=== PATIENT | male | born 1970 | race Caucasian/White ===

== ENCOUNTER 2017-02-27 04:58 | Emergency (ER) | payer BC ==
--- NOTE | 2017-02-27 05:15 | ERNOTE ---
Head Injury HPI - General Injury to: other - Posterior neck Time Seen by Provider: 02/27/17 05:13 Source: patient, RN notes reviewed Exam Limitations: no limitations - Immun/Allergies/Home Medications Immunization: IMMUNIZATION HX Immunizations Up to Date Yes History of Influenza Vaccine No Hx Pneumococcal Vaccination No Allergies/Adverse Reactions: Allergies Allergy/AdvReac Type Severity Reaction Status Date / Time No Known Allergies Allergy Unverified 02/27/17 05:00 Home Medications: HOME MEDICATIONS Cyclobenzaprine HCl [Flexeril] 10 mg PO HS PRN #15 tablet 02/27/17 [Last Taken Unknown] Furosemide [Lasix] 20 mg PO DAILY 02/27/17 [Last Taken Unknown] Lisinopril [Zestril] 5 mg PO DAILY 02/27/17 [Last Taken Unknown] Naproxen [Naprosyn] 500 mg PO BID #20 tablet 02/27/17 [Last Taken Unknown] - History of Present Illness Narrative: Patient was lifting something heavy on Monday, felt a muscle strain in his left posterior neck. It didn't seem to be too bad initially, but this morning he woke up and the pain was immensely worse. He hasn't slept much tonight and is concerned about going to work tomorrow. Occurred: other - Monday Location Occurred: home Severity: severe Method of Injury: Reports: other - lifting a heavy object Loss of Consciousness: Reports: no loss of consciousness Associated Symptoms: Reports: neck pain Review of Systems - Review of Systems Constitutional: Absent: recent illness, fever, chills EYE: Absent: eye pain, eye discharge ENT: Absent: ear pain, ear discharge, nose congestion Respiratory: Present: cough. Absent: shortness of breath Cardiology: Absent: chest pain, palpitations, syncope Gastrointestinal/Abdominal: Absent: nausea, vomiting, diarrhea Genitourinary: Absent: frequency, pain, dysuria Musculoskeletal: Absent: back pain, muscle pain, muscle stiffness, neck pain, joint pain, joint swelling Skin: Absent: rash, dryness Neurological: Absent: anxiety, depressed, headache Endocrine: Present: no symptoms reported Hematologic/Lymphatic: Present: no symptoms reported Psych: Present: no symptoms reported - Patient's Past Medical History Patient History - Medical: No pertinent hx Patient History - Cardiac/Respiratory: Hypertension, Hyperlipidemia Patient History - Cancer: No Hx of Cancer Patient History - Surgical Procedures: T & A, Other - Social History Abuse History: No History of abuse Psych History: No pertinent hx Smoking Status: Current every day smoker Patient requests Smoking Cessation Consult: No Initiate information on Smoking Cessation: No Alcohol Use: none Drug Use: none - Immunizations Immunizations Up to Date: Yes Hx Pneumococcal Vaccination: No History of Influenza Vaccine: No Physical Exam - Physical Exam General Appearance: Present: wd/wn, alert, moderate distress, anxious, obese Head Exam: Present: normal inspection, no evidence of injury Eye Exam: Normal inspection: bilateral, PERRL: bilateral, EOMI: bilateral Ears, Nose, Throat: Present: normal ENT inspection, normal pharynx Neck: Present: limited range of motion, tender lateral - Left. Absent: tender posterior midline Respiratory: Present: no respiratory distress, normal breath sounds, no accessory muscle use Cardiovascular/Chest: Present: regular rate, rhythm, no murmur, normal peripheral pulses Gastrointestinal/Abdominal: Present: normal bowel sounds, nontender, nondistended, soft, no organomegaly Back Exam: Present: normal inspection, normal range of motion Extremity Exam: Present: normal inspection, non-tender, normal range of motion, no edema Neurological Exam: Present: alert, oriented, normal mood/affect, no motor/ sensory deficits Skin Exam: Present: normal color, warm/dry ED Progress - Vital Signs Patient's Vital Signs:: I have reviewed the patient's vital signs. Vital Signs: Vital Signs 02/27/17 05:02 Temperature 36.4 C L Pulse Rate 109 H Respiratory 18 Rate Blood Pressure 169/107 O2 Sat by Pulse 99 Oximetry - Progress/Reassessment Chief Complaint: Neck Pain/Injury Progress:: Unchanged Progress Note-Subjective: 02/27/17 05:34 Toradol 60 mg IM Flexeril 10 mg to go Plan - Plan Plan: Discharge home with scripts for Naproxen and Flexeril, a work excuse. Departure Clinical Impression: Neck muscle strain Qualifiers: Encounter type: initial encounter Qualified Code(s): S16.1XXA - Strain of muscle, fascia and tendon at neck level, initial encounter - Departure Disposition: Home self-care Condition: Good Instructions: Cervical Strain and Sprain With Rehab-SportsMed Referrals: Tyron Rankin DO [Staff Physician] - (3-5 days, sooner if no improvement) Prescriptions: Cyclobenzaprine HCl [Flexeril] 10 mg PO HS PRN #15 tablet PRN Reason: Muscle Spasm Naproxen [Naprosyn] 500 mg PO BID #20 tablet
[2017-02-27] MEDS ORDERED: KETOROLAC TROMETHAMINE 60 MG/2 ML VIAL IM ONE ×2 (05:24→05:28)
[2017-02-27] MEDS ORDERED: CYCLOBENZAPRINE HCL 10 MG TABLET PO ONE (05:24)
[2017-02-27] MEDS ORDERED: CYCLOBENZAPRINE HCL 10 MG TABLET ONE (05:28)
[2017-02-27 06:05] VITALS: BP 167/97
== END 2017-02-27 05:54 | disposition home or self-care (01) ==
LOC: ER 04:58
DX: S16.1XXA Strain of muscle, fascia and tendon at neck level, initial encounter (principal); I10 Essential (primary) hypertension; E78.5 Hyperlipidemia, unspecified; F17.200 Nicotine dependence, unspecified, uncomplicated